=== PATIENT | female | born 1940 | race African-American/Black ===

== ENCOUNTER → 2016-10-03 | Outpatient (CLI) | payer OTHER ==
[~2016-10-03] MED LIST: ASPI81CH45 OR; BENA40TA2 PO; HYDR25TA4 PO; NIFE60TA75 PO; OMEP20CA5 PO; PRAV20TA3 PO
[2016-10-03 09:47] LABS: Albumin 3.8 g/dL (3.4-5.0); BUN/Creatinine Ratio 18.4; Bilirubin, Total 0.6 mg/dL (0.2-1.0); Calcium 9.5 mg/dL (8.5-10.1); Potassium 3.4 mmol/L (3.5-5.1); Total Protein 8.2 g/dL (6.4-8.2)
[2016-10-03 09:49] LABS: Basophils # (auto) 0 uL; Basophils % (auto) 0.5 % (0.0-2.0); DEFINITIVE VIEW TRANSMISSION; Eosinophils # (auto) 0.1 uL; Eosinophils % (auto) 0.8 % (0.0-7.0); Hematocrit 39.4 % (36.0-46.0); Hemoglobin 12.7 g/dL (12.2-16.2); Lymphocytes % (auto) 22.3 % (10.0-50.0); Mean Corpuscular Hemoglobin 26.2 pg (28.0-32.0); Mean Corpuscular Hgb Conc. 32.2 g/dL (32.0-36.0); Mean Corpuscular Volume 81.3 fL (80.0-100.0); Mean Platelet Volume 9.7 fL (7.4-10.4); Monocytes # (auto) 0.7 uL; Monocytes % (auto) 7.7 % (0.0-12.0); Neutrophils % (auto) 68.7 % (37.0-80.0); Platelet Count (auto) 303 10^3/uL (140-450); Red Cell Distribution Width 16.3 % (11.6-16.0); White Blood Cell 8.7 10^3/uL (4.4-10.8)
[2016-10-03 09:52] LABS: Urine Bilirubin Negative (Negative); Urine Blood Negative /uL (Negative); Urine Color Yellow (Yellow); Urine Glucose Normal (Normal); Urine Ketone Negative (Negative); Urine Mucus FEW (None Seen); Urine Nitrite Negative (Negative); Urine RBC 1 /hpf (0 - 4); Urine Squamous Epithelial Cell FEW /hpf (<5); Urine Urobilinogen Normal (Negative); Urine pH 7.5 (5.0-8.0)
== END | disposition home or self-care (01) ==
LOC: LAB 08:58
PROVIDERS: ATTEND Internal Medicine
DX: Z00.00 Encounter for general adult medical examination without abnormal findings (principal); I10 Essential (primary) hypertension; E78.2 Mixed hyperlipidemia; E55.9 Vitamin D deficiency, unspecified
CPT/HCPCS: 36415; 80053; 80061; 81001; 82306; 84443; 85025

== ENCOUNTER → 2016-10-16 | Outpatient (CLI) | payer OTHER | END | disposition home or self-care (01) | LOC: XYW 10:07 | PROVIDERS: ATTEND Internal Medicine | DX: I05.0 Rheumatic mitral stenosis (principal); I35.0 Nonrheumatic aortic (valve) stenosis; I07.1 Rheumatic tricuspid insufficiency | CPT/HCPCS: 93306 ==

== ENCOUNTER 2017-03-16 12:05 | Inpatient (IN) | payer OTHER, MEDICAID ==
[~2017-03-16] VITALS: Ht 154.9 cm; Wt 59.2 kg
[~2017-03-16 12:05] MED LIST changes: -BENA40TA2 PO; +BENA40TA7 PO; -OMEP20CA5 PO; +OMEP20CA74 PO
[2017-03-16 13:13] LABS: Urine Bilirubin Negative (Negative); Urine Blood Negative /uL (Negative); Urine Color Yellow (Yellow); Urine Glucose Normal (Normal); Urine Ketone Negative (Negative); Urine Mucus FEW (None Seen); Urine Nitrite Negative (Negative); Urine RBC 1 /hpf (0 - 4); Urine Squamous Epithelial Cell FEW /hpf (<5); Urine Urobilinogen Normal (Negative); Urine pH 6.5 (5.0-8.0)
[2017-03-16 13:23] LABS: Basophils # (auto) 0 uL; Basophils % (auto) 0.2 % (0.0-2.0); CONDITION Y; DEFINITIVE SEE PRINTOUT; Eosinophils # (auto) 0 uL; Eosinophils % (auto) 0.3 % (0.0-7.0); Hematocrit 41.4 % (36.0-46.0); Hemoglobin 13.5 g/dL (12.2-16.2); Lymphocytes # (auto) 2.2 uL; Lymphocytes % (auto) 21.3 % (10.0-50.0); Mean Corpuscular Hemoglobin 26.4 pg (28.0-32.0); Mean Corpuscular Hgb Conc. 32.7 g/dL (32.0-36.0); Mean Corpuscular Volume 80.7 fL (80.0-100.0); Monocytes # (auto) 0.7 uL; Monocytes % (auto) 7.1 % (0.0-12.0); Neutrophils # (auto) 7.3 uL; Neutrophils % (auto) 71.1 % (37.0-80.0); Platelet Count (auto) 317 10^3/uL (140-450); Red Cell Distribution Width 16.9 % (11.6-16.0); White Blood Cell 10.3 10^3/uL (4.4-10.8)
[2017-03-16 13:47] LABS: Albumin 3.7 g/dL (3.4-5.0); Alkaline Phosphatase 89 U/L (45-117); Anion Gap 10 (5-15); Aspartate Aminotransferase 15 U/L (15-37); BUN/Creatinine Ratio 11.1; Bilirubin, Total 0.4 mg/dL (0.2-1.0); Blood Urea Nitrogen 10 mg/dL (7-18); Calcium 9.2 mg/dL (8.5-10.1); Carbon Dioxide 29 mmol/L (21-32); Chloride 103 mmol/L (98-107); GFR African American 79 mL/min; GFR Non-African American 65 mL/min; Glucose 89 mg/dL (74-106); Magnesium 2.7 mg/dL (1.6-2.6); Sodium 142 mmol/L (136-145); Total Protein 8.3 g/dL (6.4-8.2)
[2017-03-16] MEDS ORDERED: cefTRIAXone 1GM/50ML D5W 50 ML IV ONE (15:45)
[2017-03-16] MEDS ORDERED: CYCLOBENZAPRINE HCL 10 MG TAB PO ONE (15:45)
[2017-03-16] MEDS ORDERED: ASPirin-EC 81 mg tab PO ONE (15:45)
[2017-03-16] MEDS ORDERED: POTASSIUM CHL 20 Meq TABLET PO ONE (15:45)
[2017-03-16] MEDS ORDERED: TEMAZEPAM 15 MG CAP PO PRN (16:45)
[2017-03-16] MEDS ORDERED: ACETAMINOPHEN 325 MG TAB PO PRN (16:45)
[2017-03-16] MEDS ORDERED: ONDANSETRON HCL 4 MG/2 ML VIAL IV PRN (16:45)
[2017-03-16] MEDS ORDERED: DOCUSATE SOD 100 MG CAP PO PRN (16:45)
[2017-03-16] MEDS ORDERED: NITROGLYCERIN 0.4 MG SL TAB SL PRN (16:45)
[2017-03-16 17:47] VITALS: BP 173/77
[2017-03-16] MEDS ORDERED: cloNIDine HCL 0.1 MG TAB PO PRN (18:45)
[2017-03-16] MEDS: FAMOTIDINE 20 MG TAB PO SCH (21:26)
[2017-03-16] MEDS: SODIUM CHLOR 0.9% PF (SALINE LOCK) 10ML VIAL IV SCH (21:27)
[2017-03-16] MEDS: PRAVASTATIN SODIUM 20 MG TAB PO SCH (21:27)
[2017-03-16 22:00] VITALS: BP 141/62
[2017-03-17 05:00] VITALS: BP 127/61
[2017-03-17 06:29] LABS: Basophils # (auto) 0 uL; Basophils % (auto) 0.4 % (0.0-2.0); CONDITION Y; DEFINITIVE SEE PRINTOUT; Eosinophils # (auto) 0.1 uL; Eosinophils % (auto) 1.1 % (0.0-7.0); Hematocrit 36.2 % (36.0-46.0); Lymphocytes # (auto) 1.9 uL; Lymphocytes % (auto) 25.5 % (10.0-50.0); Mean Corpuscular Hemoglobin 26.6 pg (28.0-32.0); Mean Corpuscular Hgb Conc. 33.1 g/dL (32.0-36.0); Mean Corpuscular Volume 80.3 fL (80.0-100.0); Mean Platelet Volume 10.1 fL (7.4-10.4); Monocytes # (auto) 0.7 uL; Monocytes % (auto) 8.7 % (0.0-12.0); Neutrophils # (auto) 4.9 uL; Neutrophils % (auto) 64.3 % (37.0-80.0); Platelet Count (auto) 262 10^3/uL (140-450); Red Cell Distribution Width 17.1 % (11.6-16.0); White Blood Cell 7.6 10^3/uL (4.4-10.8)
[2017-03-17 06:36] LABS: BUN/Creatinine Ratio 14.6; Calcium 8.4 mg/dL (8.5-10.1); Potassium 3.8 mmol/L (3.5-5.1)
[2017-03-17 06:39] LABS: Bilirubin, Total 0.4 mg/dL (0.2-1.0); Total Protein 7.1 g/dL (6.4-8.2)
[2017-03-17] MEDS: SODIUM CHLOR 0.9% PF (SALINE LOCK) 10ML VIAL IV SCH ×3 (06:52→21:23)
[2017-03-17] MEDS: HYDROmorphone HCL 2 MG/ML VL IV PRN ×2 (07:39→14:09)
[2017-03-17 09:00] VITALS: BP 127/73
[2017-03-17] MEDS: cefTRIAXone 1GM/50ML D5W 50 ML IV SCH (09:00)
[2017-03-17] MEDS: MULTIPLE VITAMIN TAB PO SCH (09:45)
[2017-03-17] MEDS: ENOXAPARIN SOD 40 MG/0.4 ML SYRINGE SC SCH (09:45)
[2017-03-17] MEDS: PANTOPRAZOLE 40 MG TAB PO SCH (09:46)
[2017-03-17] MEDS: ASPirin-EC 81 mg tab PO SCH (09:46)
[2017-03-17] MEDS: FAMOTIDINE 20 MG TAB PO SCH ×2 (09:46→21:23)
[2017-03-17] MEDS: BENAZEPRIL HCL 10 MG TAB PO SCH (09:47)
[2017-03-17] MEDS: NIFEdipine ER 30 MG TAB PO SCH (09:48)
[2017-03-17] MEDS: HCTZ 25 MG TAB PO SCH (09:48)
[2017-03-17] MEDS: HYDROcodone-ACET 5/325MG TAB PO PRN ×2 (10:17→16:19)
[2017-03-17 13:00] VITALS: BP 127/65
[2017-03-17 17:00] VITALS: BP 177/72
[2017-03-17] MEDS: PRAVASTATIN SODIUM 20 MG TAB PO SCH (21:23)
[2017-03-17 21:30] VITALS: BP 128/60
[2017-03-18 05:00] VITALS: BP 106/55
[2017-03-18] MEDS: SODIUM CHLOR 0.9% PF (SALINE LOCK) 10ML VIAL IV SCH ×2 (06:07→14:00)
[2017-03-18 08:00] VITALS: BP 123/65
[2017-03-18] MEDS: ASPirin-EC 81 mg tab PO SCH (09:05)
[2017-03-18] MEDS: FAMOTIDINE 20 MG TAB PO SCH (09:06)
[2017-03-18] MEDS: BENAZEPRIL HCL 10 MG TAB PO SCH (09:06)
[2017-03-18] MEDS: PANTOPRAZOLE 40 MG TAB PO SCH (09:07)
[2017-03-18] MEDS: HCTZ 25 MG TAB PO SCH (09:07)
[2017-03-18] MEDS: NIFEdipine ER 30 MG TAB PO SCH (09:07)
[2017-03-18] MEDS: MULTIPLE VITAMIN TAB PO SCH (09:07)
[2017-03-18] MEDS: ENOXAPARIN SOD 40 MG/0.4 ML SYRINGE SC SCH (09:08)
[2017-03-18] MEDS: cefTRIAXone 1GM/50ML D5W 50 ML IV SCH (09:08)
[2017-03-18] MEDS: HYDROmorphone HCL 2 MG/ML VL IV PRN (09:09)
[2017-03-18 12:00] VITALS: BP 147/64
[2017-03-18 15:00] LABS: Cholesterol 200 mg/dL (< 200); HDL Cholesterol 55 mg/dL (40-59); LDL Cholesterol 118 mg/dL (< 100); Triglycerides 106 mg/dL (< 150)
[2017-03-18 15:46] VITALS: BP 147/60
[2017-03-18 17:00] VITALS: BP 127/59
== END 2017-03-18 17:50 | disposition home or self-care (01) | DRG 74 ==
LOC: ER 12:05 → TELE 12:06 → TELE-E-ADS 17:24 → TELE-WESTW 18:52
PROVIDERS: ADMIT Internal Medicine; ATTEND Internal Medicine
DX: M54.12 Radiculopathy, cervical region (principal); G45.9 Transient cerebral ischemic attack, unspecified; I10 Essential (primary) hypertension; N30.00 Acute cystitis without hematuria; E87.6 Hypokalemia; E78.5 Hyperlipidemia, unspecified; F41.9 Anxiety disorder, unspecified; I25.10 Atherosclerotic heart disease of native coronary artery without angina pectoris; K21.9 Gastro-esophageal reflux disease without esophagitis; G89.29 Other chronic pain; M19.90 Unspecified osteoarthritis, unspecified site; R29.700 NIHSS score 0; Z79.82 Long term (current) use of aspirin; Z82.49 Family history of ischemic heart disease and other diseases of the circulatory system; Z86.73 Personal history of transient ischemic attack (TIA), and cerebral infarction without residual deficits; Z90.49 Acquired absence of other specified parts of digestive tract; Z90.710 Acquired absence of both cervix and uterus; Z90.89 Acquired absence of other organs; Z88.5 Allergy status to narcotic agent; Z88.0 Allergy status to penicillin; Z88.2 Allergy status to sulfonamides
CPT/HCPCS: 36415; 70450; 70551; 71010; 72141; 80053; 80061; 81001; 83036; 83735; 84484; 85025; 87086; 92610; 93005; 93886; 96374; J0696; J2405

== ENCOUNTER 2017-12-13 09:49 | Day surgery (SDC) | payer OTHER, MEDICAID ==
[2017-12-10 13:16] LABS: Basophils # (auto) 0 uL; Basophils % (auto) 0.4 % (0.0-2.0); Eosinophils # (auto) 0.1 uL; Eosinophils % (auto) 0.8 % (0.0-7.0); Hematocrit 39.6 % (36.0-46.0); Hemoglobin 13.2 g/dL (12.2-16.2); Lymphocytes # (auto) 1.4 uL; Lymphocytes % (auto) 17.4 % (10.0-50.0); Mean Corpuscular Hgb Conc. 33.4 g/dL (32.0-36.0); Mean Corpuscular Volume 80.8 fL (80.0-100.0); Monocytes # (auto) 0.7 uL; Neutrophils # (auto) 5.8 uL; Neutrophils % (auto) 72.4 % (37.0-80.0); Nucleated Red Blood Cells % 0.2 %; Platelet Count (auto) 243 10^3/uL (140-450); Red Cell Distribution Width 17.3 % (11.8-14.3); White Blood Cell 8.1 10^3/uL (4.4-10.8)
[2017-12-10 13:35] LABS: INR 0.91 (0.9-1.15); Partial Thromboplastin Time 28.5 sec (22.64-33.71); Prothrombin Time 9.9 sec (9.37-12.3)
[~2017-12-13] VITALS: Ht 154.9 cm; Wt 56.2 kg
[~2017-12-13 09:49] MED LIST changes: -ASPI81CH45 OR; +ASPI81CH45 PO; +LIDOCAINE VISCOUS 2% 15ML UD ONE; +NIFE-31 PO; -NIFE60TA75 PO; +SODIUM CHLORIDE LOCK 10 ML ONE; +diphenhdrAMINE HCL 50 MG/1 ML VL ONE
[2017-12-13] MEDS: fentaNYL CITRATE 100 MCG/2 ML VL ONE ×2 (10:55→10:59)
[2017-12-13] MEDS: MIDAZOLAM HCL 5 MG/ML-1ML VIAL ONE ×2 (10:55→10:59)
[2017-12-13 12:06] VITALS: BP 151/71
[2017-12-13] MEDS ORDERED: ONDANSETRON HCL 4 MG/2 ML VIAL IV ONE (12:15)
[2017-12-13] MEDS ORDERED: ONDANSETRON HCL 4 MG/2 ML VIAL ONE (12:16)
== END 2017-12-13 12:32 | disposition home or self-care (01) ==
LOC: SUR 09:49
PROVIDERS: ATTEND Internal Medicine Gastroenterology
DX: K29.50 Unspecified chronic gastritis without bleeding (principal); K31.7 Polyp of stomach and duodenum; K22.70 Barrett's esophagus without dysplasia; K44.9 Diaphragmatic hernia without obstruction or gangrene; I20.9 Angina pectoris, unspecified; J44.9 Chronic obstructive pulmonary disease, unspecified; F41.9 Anxiety disorder, unspecified; G47.30 Sleep apnea, unspecified; D64.9 Anemia, unspecified; I13.0 Hypertensive heart and chronic kidney disease with heart failure and stage 1 through stage 4 chronic kidney disease, or unspecified chronic kidney disease; E11.22 Type 2 diabetes mellitus with diabetic chronic kidney disease; N18.2 Chronic kidney disease, stage 2 (mild); I50.9 Heart failure, unspecified; E78.5 Hyperlipidemia, unspecified; Z90.49 Acquired absence of other specified parts of digestive tract; Z79.899 Other long term (current) drug therapy; Z86.73 Personal history of transient ischemic attack (TIA), and cerebral infarction without residual deficits; Z88.0 Allergy status to penicillin; Z88.2 Allergy status to sulfonamides; Z88.8 Allergy status to other drugs, medicaments and biological substances; Z88.5 Allergy status to narcotic agent; Z90.710 Acquired absence of both cervix and uterus; Z90.721 Acquired absence of ovaries, unilateral
CPT/HCPCS: 36415; 43239; 85025; 85610; 85730; 88305; 88313; 88342; J1200; J2250; J2405; J3010; J7030

== ENCOUNTER 2018-08-11 15:23 | Inpatient (IN) | payer OTHER, MEDICAID ==
[~2018-08-11] VITALS: Ht 154.9 cm; Wt 61.3 kg
[~2018-08-11 15:23] MED LIST changes: -LIDOCAINE VISCOUS 2% 15ML UD ONE; -SODIUM CHLORIDE LOCK 10 ML ONE; -diphenhdrAMINE HCL 50 MG/1 ML VL ONE
[2018-08-11] MEDS ORDERED: SODIUM CHLORIDE 0.9% 1,000 ML IV ONE (16:19)
[2018-08-11] MEDS ORDERED: PANTOPRAZOLE 40 MG/10 ML VIAL IV ONE (16:30)
[2018-08-11 16:46] LABS: Basophils # (auto) 0 uL; Basophils % (auto) 0.1 % (0.0-2.0); Eosinophils # (auto) 0 uL; Mean Corpuscular Volume 80.5 fL (80.0-100.0)
[2018-08-11 16:48] LABS: Hemoglobin 13.6 g/dL (12.2-16.2); Lymphocytes # (auto) 0.6 uL; Lymphocytes % (auto) 4.1 % (10.0-50.0); Mean Corpuscular Hemoglobin 26.1 pg (28.0-32.0); Mean Corpuscular Hgb Conc. 32.4 g/dL (32.0-36.0); Monocytes # (auto) 0.6 uL; Monocytes % (auto) 3.9 % (0.0-12.0); Neutrophils # (auto) 14.5 uL; Neutrophils % (auto) 91.9 % (37.0-80.0); Platelet Count (auto) 257 10^3/uL (140-450); Red Blood Cells 5.22 10^6/uL (4.0-5.20); White Blood Cell 15.8 10^3/uL (4.4-10.8)
[2018-08-11 17:01] LABS: Albumin 3.5 g/dL (3.4-5.0); Anion Gap 4 (5-15); Blood Urea Nitrogen 17 mg/dL (7-18); Calcium 8.8 mg/dL (8.5-10.1); Carbon Dioxide 31 mmol/L (21-32); Chloride 106 mmol/L (98-107); Glucose 122 mg/dL (74-106); Potassium 3.5 mmol/L (3.5-5.1); Sodium 141 mmol/L (136-145)
[2018-08-11 17:08] LABS: Alanine Aminotransferase 18 U/L (13-56); Alkaline Phosphatase 104 U/L (45-117); Aspartate Aminotransferase 17 U/L (15-37); BUN/Creatinine Ratio 15.7; Bilirubin, Total 0.5 mg/dL (0.2-1.0); GFR Non-African American 53 mL/min; Total Protein 7.8 g/dL (6.4-8.2)
[2018-08-11 17:14] LABS: INR 0.95 (0.9-1.15); Partial Thromboplastin Time 27.3 sec (23.78-33.04); Prothrombin Time 10.2 sec (9.27-12.13)
[2018-08-11 17:20] LABS: GFR African American > 60 mL/min
[2018-08-11] MEDS ORDERED: PROMETHAZINE HCL 25 MG/ML 1ML IV ONE (17:30)
[2018-08-11] MEDS ORDERED: VANCOMYCIN 1GM/250ML 250 ML IV ONE (18:15)
[2018-08-11] MEDS ORDERED: traMADol HCL 50 MG TAB PO PRN (19:00)
[2018-08-11] MEDS ORDERED: MORPHINE SULFATE 10 MG/ML INJ 1ML SDV IV PRN (19:00)
[2018-08-11] MEDS ORDERED: NITROGLYCERIN 0.4 MG SL TAB SL PRN (19:00)
[2018-08-11] MEDS ORDERED: VANCOMYCIN PER PHARMACY 0 MG IV SCH (19:00)
[2018-08-11] MEDS: SODIUM CHLORIDE 0.9% 1,000 ML IV SCH (19:04)
[2018-08-11 21:41] VITALS: BP 133/69
[2018-08-11 21:45] VITALS: BP 133/69
--- NOTE | 2018-08-11 21:45 | NUR ---
Telemetry admit from ER GENILUDWIN admitted to Telemetry unit after SBAR received. Patient oriented to Gagan garcia RN, unit, room, bed, and unit policies regarding patient care and visiting hours. Patient now on continuous telemetry monitoring, tele box # 4 and telemetry reading on arrival to unit is NSR. Patient placed on bedside oxygen, weighed by bedscale and encouraged to call if they need something. All questions and concerns addressed, patient verbalized understanding.
[2018-08-11] MEDS: KETOROLAC TROMETH 30 MG/ML 1ML VIAL IV PRN (22:58)
[2018-08-11] MEDS: ATORVASTATIN 20 MG TAB PO SCH (22:58)
[2018-08-12] MEDS: metroNIDAZOLE 500MG/100ML 100 ML IV SCH ×4 (04:02→18:16)
[2018-08-12 05:42] VITALS: BP 124/61
[2018-08-12 06:01] LABS: Basophils # (auto) 0 uL; Basophils % (auto) 0.1 % (0.0-2.0); Eosinophils # (auto) 0 uL; Hemoglobin 12.2 g/dL (12.2-16.2); Lymphocytes # (auto) 1.8 uL; Mean Corpuscular Hgb Conc. 32.5 g/dL (32.0-36.0); Monocytes # (auto) 1.3 uL; Red Cell Distribution Width 15.8 % (11.8-14.3)
[2018-08-12 06:04] LABS: Eosinophils % (auto) 0.1 % (0.0-7.0); Hematocrit 37.6 % (36.0-46.0); Lymphocytes % (auto) 13.1 % (10.0-50.0); Mean Corpuscular Hemoglobin 26.3 pg (28.0-32.0); Mean Corpuscular Volume 80.9 fL (80.0-100.0); Monocytes % (auto) 9.1 % (0.0-12.0); Neutrophils # (auto) 10.6 uL; Neutrophils % (auto) 77.6 % (37.0-80.0); Platelet Count (auto) 217 10^3/uL (140-450); Red Blood Cells 4.64 10^6/uL (4.0-5.20); White Blood Cell 13.7 10^3/uL (4.4-10.8)
[2018-08-12 06:17] LABS: Calcium 8.2 mg/dL (8.5-10.1); Magnesium 2.4 mg/dL (1.6-2.6); Potassium 3.5 mmol/L (3.5-5.1)
[2018-08-12 06:24] LABS: BUN/Creatinine Ratio 16.3
[2018-08-12] MEDS: SODIUM CHLORIDE 0.9% 1,000 ML IV SCH ×2 (06:30→15:00)
[2018-08-12] MEDS: KETOROLAC TROMETH 30 MG/ML 1ML VIAL IV PRN ×2 (08:20→16:51)
[2018-08-12 08:30] VITALS: BP_SYST 120; BP_SYST 131; BP_DIAS 60; BP_DIAS 76
[2018-08-12] MEDS: PANTOPRAZOLE 40 MG/10 ML VIAL IV SCH (10:44)
[2018-08-12] MEDS: NIFEdipine ER 30 MG TAB PO SCH (10:45)
[2018-08-12] MEDS: cefTRIAXone 1GM/50ML D5W 50 ML IV SCH (10:46)
--- NOTE | 2018-08-12 12:38 | NUR ---
GI at bedside MD Baum at bedside, awaiting new orders.
--- NOTE | 2018-08-12 12:39 | NUR ---
Hospitalist at bedside MD Duarte at bedside. Aware of patients status including rectal bleed. Awaiting new orders
[2018-08-12 13:00] VITALS: BP 123/69
[2018-08-12 13:27] LABS: Hematocrit 35.2 % (36.0-46.0); Hemoglobin 11.4 g/dL (12.2-16.2)
[2018-08-12 17:00] VITALS: BP 143/76
[2018-08-12] MEDS ORDERED: VANCOMYCIN 1GM/250ML 250 ML IV SCH (18:00)
--- NOTE | 2018-08-12 19:05 | NUR ---
Patient care endorsed endorsed care to Shante nguyen. Patient laying down in bed in no acute distress or sob.
--- NOTE | 2018-08-12 19:10 | NUR ---
OPEN SHIFT NOTE PATIENT ALERT AND ORIENTED X4, ON ROOM AIR. NO COMPLAINTS OF PAIN. POC DISCUSSED AND QUESTIONS ANSWERED. BED IS LOCKED IN LOWEST POSITION WITH SIDE RAILS UP X2. CALL LIGHT IS WITHIN REACH. WILL CONTINUE TO ROUND Q1HR AND PRN.
[2018-08-12 22:00] VITALS: BP 116/65
[2018-08-12] MEDS: ATORVASTATIN 20 MG TAB PO SCH (22:13)
[2018-08-13] MEDS: metroNIDAZOLE 500MG/100ML 100 ML IV SCH ×4 (00:13→18:45)
[2018-08-13] MEDS: SODIUM CHLORIDE 0.9% 1,000 ML IV SCH ×3 (00:14→13:45)
[2018-08-13 05:10] VITALS: BP 107/55
--- NOTE | 2018-08-13 08:00 | NUR ---
Opening Shift Note Assumed care of patient, awake and alert. No S/S of distress/SOB or pain. Instructed on POC and to call for assist PRN, will continue to monitor for changes Q1hr and PRN.
[2018-08-13 08:21] VITALS: BP 115/62
[2018-08-13] MEDS: cefTRIAXone 1GM/50ML D5W 50 ML IV SCH (09:20)
[2018-08-13] MEDS: PANTOPRAZOLE 40 MG/10 ML VIAL IV SCH (09:20)
[2018-08-13] MEDS: NIFEdipine ER 30 MG TAB PO SCH (09:21)
--- NOTE | 2018-08-13 11:10 | NUR ---
DR. ZUNIGA AT BEDSIDE.
[2018-08-13 11:13] LABS: Lymphocytes # (auto) 1.8 uL; White Blood Cell 12.6 10^3/uL (4.4-10.8)
[2018-08-13 11:15] LABS: Basophils # (auto) 0.1 uL; Basophils % (auto) 0.4 % (0.0-2.0); Eosinophils # (auto) 0 uL; Eosinophils % (auto) 0.4 % (0.0-7.0); Hemoglobin 10.9 g/dL (12.2-16.2); Lymphocytes % (auto) 13.9 % (10.0-50.0); Mean Corpuscular Hemoglobin 25.7 pg (28.0-32.0); Mean Corpuscular Hgb Conc. 32.1 g/dL (32.0-36.0); Monocytes % (auto) 7.7 % (0.0-12.0); Neutrophils # (auto) 9.8 uL; Neutrophils % (auto) 77.6 % (37.0-80.0); Nucleated Red Blood Cells % 0.1 %; Platelet Count (auto) 192 10^3/uL (140-450); Red Blood Cells 4.26 10^6/uL (4.0-5.20)
[2018-08-13] MEDS: ONDANSETRON HCL 4 MG/2 ML VIAL IV PRN ×2 (11:27→21:27)
[2018-08-13] MEDS: KETOROLAC TROMETH 30 MG/ML 1ML VIAL IV PRN ×2 (11:27→22:02)
[2018-08-13 11:29] LABS: Anion Gap 5 (5-15); BUN/Creatinine Ratio 17.6; Blood Urea Nitrogen 15 mg/dL (7-18); Calcium 7.7 mg/dL (8.5-10.1); Carbon Dioxide 26 mmol/L (21-32); Chloride 113 mmol/L (98-107); GFR African American > 60 mL/min; GFR Non-African American > 60 mL/min; Glucose 98 mg/dL (74-106); Sodium 144 mmol/L (136-145)
[2018-08-13 12:25] VITALS: BP 123/68
[2018-08-13] MEDS ORDERED: POTASSIUM CHL 20 Meq TABLET PO ONE (12:30)
[2018-08-13 12:54] LABS: Urine Bacteria FEW /hpf (None Seen); Urine Blood 2+ /uL (Negative); Urine Mucus FEW (None Seen); Urine Specific Gravity 1.018 (1.001-1.035); Urine WBC 13 /hpf (0 - 5)
[2018-08-13 16:43] VITALS: BP 124/65
--- NOTE | 2018-08-13 19:16 | NUR ---
CLOSING NOTE PATIENT RESTING IN BED, NO SIGNS OF DISTRESS NOTED.
--- NOTE | 2018-08-13 19:20 | NUR ---
OPEN SHIFT NOTE PATIENT IS ALERT AND ORIENTED X4. ROOM AIR. 18 GAUGE IN THE RIGHT AC IS INTACT WITH NORMAL SALINE RUNNING AT 70MLS/HR. PATIENT DOES NOT STATE ANY PAIN AT THIS TIME. POC DISCUSSED AND QUESTIONS ANSWERED. BED IS LOCKED IN LOWEST POSITION WITH SIDE RAILS UP X2 FOR SAFETY AND CALL LIGHT IS WITHIN REACH. WILL CONTINUE TO ROUND Q1HR AND PRN.
[2018-08-13] MEDS: ATORVASTATIN 20 MG TAB PO SCH (21:55)
[2018-08-13 22:00] VITALS: BP 146/66
[2018-08-14] MEDS: metroNIDAZOLE 500MG/100ML 100 ML IV SCH ×4 (00:07→17:34)
[2018-08-14 05:00] VITALS: BP 131/65
[2018-08-14] MEDS: SODIUM CHLORIDE 0.9% 1,000 ML IV SCH ×2 (06:02→13:55)
[2018-08-14 06:13] LABS: Basophils # (auto) 0 uL; Basophils % (auto) 0.3 % (0.0-2.0); Eosinophils # (auto) 0.1 uL; Eosinophils % (auto) 0.6 % (0.0-7.0); Hematocrit 35.1 % (36.0-46.0); Hemoglobin 11.5 g/dL (12.2-16.2); Lymphocytes # (auto) 1.7 uL; Lymphocytes % (auto) 16.6 % (10.0-50.0); Mean Corpuscular Hemoglobin 26.5 pg (28.0-32.0); Mean Corpuscular Hgb Conc. 32.6 g/dL (32.0-36.0); Mean Corpuscular Volume 81.1 fL (80.0-100.0); Monocytes # (auto) 0.7 uL; Monocytes % (auto) 7.2 % (0.0-12.0); Neutrophils # (auto) 7.7 uL; Neutrophils % (auto) 75.3 % (37.0-80.0); Platelet Count (auto) 189 10^3/uL (140-450); Red Blood Cells 4.33 10^6/uL (4.0-5.20); Red Cell Distribution Width 16.1 % (11.8-14.3); White Blood Cell 10.3 10^3/uL (4.4-10.8)
[2018-08-14 06:40] LABS: Chloride 109 mmol/L (98-107); Potassium 3.2 mmol/L (3.5-5.1); Sodium 141 mmol/L (136-145)
[2018-08-14 06:45] LABS: Anion Gap 8 (5-15); BUN/Creatinine Ratio 14.5; Blood Urea Nitrogen 12 mg/dL (7-18); Calcium 7.9 mg/dL (8.5-10.1); Carbon Dioxide 24 mmol/L (21-32); GFR African American > 60 mL/min; GFR Non-African American > 60 mL/min; Glucose 74 mg/dL (74-106)
--- NOTE | 2018-08-14 06:57 | NUR ---
END OF SHIFT PATIENT ASLEEP, NO SIGN OF DISTRESS. WILL ENDORSE CARE TO DAY TIME NURSE.
--- NOTE | 2018-08-14 08:30 | NUR ---
Opening Shift Note Assumed care of patient, awake and alert, oriented x 4 and verbally responsive. Respiratory even and unlabored. Skin is warm and dry to touch. No S/S of distress/SOB or pain. Instructed on POC and to call for assist PRN, will continue to monitor for changes Q1hr and PRN.
--- NOTE | 2018-08-14 08:43 | NUR ---
PT REPORTS THAT SHE IS DOING FINE AND DOES NOT NEED P.T.
--- NOTE | 2018-08-14 08:45 | NUR ---
IV insertion IV access obtained, via clean sterile technique by inserting 22 gauge catheter at after attempt(s). IV secured properly. No trauma to site. Patient tolerated procedure well.
[2018-08-14 09:00] VITALS: BP 143/73
[2018-08-14] MEDS: PANTOPRAZOLE 40 MG/10 ML VIAL IV SCH (09:14)
[2018-08-14] MEDS: cefTRIAXone 1GM/50ML D5W 50 ML IV SCH (09:14)
[2018-08-14] MEDS: ONDANSETRON HCL 4 MG/2 ML VIAL IV PRN ×3 (09:14→21:33)
[2018-08-14] MEDS: NIFEdipine ER 30 MG TAB PO SCH (09:15)
[2018-08-14] MEDS ORDERED: POTASSIUM CHL 20 Meq TABLET PO ONE (11:30)
[2018-08-14 13:00] VITALS: BP 129/66
[2018-08-14 17:07] VITALS: BP 140/71
[2018-08-14] MEDS: ATORVASTATIN 20 MG TAB PO SCH (21:32)
[2018-08-14 22:00] VITALS: BP 121/56
[2018-08-15] MEDS: metroNIDAZOLE 500MG/100ML 100 ML IV SCH ×3 (00:12→11:52)
[2018-08-15 05:00] VITALS: BP 111/53
[2018-08-15 06:25] LABS: Basophils # (auto) 0 uL; Basophils % (auto) 0.3 % (0.0-2.0); Eosinophils # (auto) 0 uL; Eosinophils % (auto) 0.3 % (0.0-7.0); Hematocrit 33.8 % (36.0-46.0); Hemoglobin 11.2 g/dL (12.2-16.2); Lymphocytes % (auto) 10.7 % (10.0-50.0); Mean Corpuscular Hemoglobin 26.7 pg (28.0-32.0); Mean Corpuscular Hgb Conc. 33.2 g/dL (32.0-36.0); Mean Corpuscular Volume 80.4 fL (80.0-100.0); Monocytes # (auto) 0.8 uL; Monocytes % (auto) 8.4 % (0.0-12.0); Neutrophils # (auto) 7.9 uL; Neutrophils % (auto) 80.3 % (37.0-80.0); Platelet Count (auto) 179 10^3/uL (140-450); Red Cell Distribution Width 16.3 % (11.8-14.3); White Blood Cell 9.8 10^3/uL (4.4-10.8)
[2018-08-15] MEDS: SODIUM CHLORIDE 0.9% 1,000 ML IV SCH (06:51)
--- NOTE | 2018-08-15 07:30 | NUR ---
Opening Note Patient resting in bed with eyes closed. No distress noted. Bed in low pos., locked, rails up x2, call light in reach. No distress.
[2018-08-15 09:00] VITALS: BP 108/51
[2018-08-15] MEDS: NIFEdipine ER 30 MG TAB PO SCH (10:00)
[2018-08-15] MEDS: cefTRIAXone 1GM/50ML D5W 50 ML IV SCH (10:15)
[2018-08-15] MEDS: PANTOPRAZOLE 40 MG/10 ML VIAL IV SCH (10:15)
[2018-08-15] MEDS ORDERED: POTASSIUM CHL 20 Meq TABLET PO ONE (11:15)
--- NOTE | 2018-08-15 11:59 | NUR ---
Telemetry Telemetry removed
[2018-08-15] MEDS ORDERED: METR500T PO (12:48)
[2018-08-15] MEDS ORDERED: LEVO500T21 PO (12:48)
[2018-08-15 13:00] VITALS: BP 125/59
[2018-08-15 14:32] VITALS: BP 125/59
[2018-08-15] MEDS: ONDANSETRON HCL 4 MG/2 ML VIAL IV PRN (16:07)
[2018-08-15 17:04] VITALS: BP 140/66
--- NOTE | 2018-08-15 18:43 | NUR ---
Snack and Dinner Patient had part of a banana and some of her dinner (25%), and was able to tolerate it well. Discharge Discharge instructions given to patient and her family. Gave prescriptions for lovenox and flagyl po. Patient is aware that she needs to call office of Dr. Baum and Office of her primary doctor for follow-up appt. Removed IV, site benign. Three family members here to take patient home. Patient has all belongings and discharge instructions.
--- NOTE | 2018-08-15 19:05 | NUR ---
PT LEFT VIA W/C ACCOMPANIED BY FAMILY AND CUSTOMER CONSULTANT. HAS ALL BELONGINGS. NO DISTRESS NOTED.
== END 2018-08-15 18:35 | disposition home or self-care (01) | DRG 871 ==
LOC: EDBD 15:23 → ER 15:32 → TELE 19:20 → TELE-WESTW 21:32
PROVIDERS: ADMIT Nurse Practitioner Acute Care; ATTEND Internal Medicine
DX: A41.9 Sepsis, unspecified organism (principal); N17.0 Acute kidney failure with tubular necrosis; K55.9 Vascular disorder of intestine, unspecified; E78.00 Pure hypercholesterolemia, unspecified; E78.5 Hyperlipidemia, unspecified; E87.6 Hypokalemia; I10 Essential (primary) hypertension; I70.8 Atherosclerosis of other arteries; M54.9 Dorsalgia, unspecified; N28.1 Cyst of kidney, acquired; G89.29 Other chronic pain; D64.9 Anemia, unspecified; K21.9 Gastro-esophageal reflux disease without esophagitis; I70.0 Atherosclerosis of aorta; K57.30 Diverticulosis of large intestine without perforation or abscess without bleeding; Z82.49 Family history of ischemic heart disease and other diseases of the circulatory system; Z86.73 Personal history of transient ischemic attack (TIA), and cerebral infarction without residual deficits; Z90.49 Acquired absence of other specified parts of digestive tract; Z90.710 Acquired absence of both cervix and uterus; Z88.1 Allergy status to other antibiotic agents; Z88.5 Allergy status to narcotic agent; Z88.0 Allergy status to penicillin; Z88.2 Allergy status to sulfonamides; Z79.82 Long term (current) use of aspirin; Z79.899 Other long term (current) drug therapy; Z90.89 Acquired absence of other organs
CPT/HCPCS: 36415; 71045; 74176; 80048; 80053; 81001; 82270; 83605; 83735; 84132; 84443; 84484; 85014; 85018; 85025; 85610; 85730; 87040; 87045; 87493; 87899; 96361; 96365; 96375; A6257; C9113; G0378; J0696; J1885; J2405; J3490

== ENCOUNTER → 2018-08-22 | Outpatient (CLI) | payer OTHER, MEDICAID ==
[~2018-08-22] MED LIST changes: -ASPI81CH45 PO; -BENA40TA7 PO; -HYDR25TA4 PO; +LEVO500T21 PO; +METR500T PO
[2018-08-22 09:21] LABS: Basophils # (auto) 0 uL; Basophils % (auto) 0.4 % (0.0-2.0); Eosinophils # (auto) 0 uL; Hematocrit 38.3 % (36.0-46.0); Monocytes # (auto) 0.8 uL
[2018-08-22 09:23] LABS: Eosinophils % (auto) 0.4 % (0.0-7.0); Hemoglobin 12.7 g/dL (12.2-16.2); Lymphocytes # (auto) 1.3 uL; Lymphocytes % (auto) 15.6 % (10.0-50.0); Mean Corpuscular Hemoglobin 26.4 pg (28.0-32.0); Mean Corpuscular Volume 79.8 fL (80.0-100.0); Monocytes % (auto) 9.8 % (0.0-12.0); Neutrophils # (auto) 6.3 uL; Neutrophils % (auto) 73.8 % (37.0-80.0); Platelet Count (auto) 319 10^3/uL (140-450); Red Blood Cells 4.81 10^6/uL (4.0-5.20); Red Cell Distribution Width 16.3 % (11.8-14.3); White Blood Cell 8.5 10^3/uL (4.4-10.8)
== END | disposition home or self-care (01) ==
LOC: LAB 08:57
PROVIDERS: ATTEND Internal Medicine
DX: D64.9 Anemia, unspecified (principal)
CPT/HCPCS: 36415; 85025

== ENCOUNTER → 2018-10-24 | Day surgery (SDC) | payer OTHER, MEDICAID ==
[2018-10-21 09:34] LABS: Basophils # (auto) 0 uL; Eosinophils # (auto) 0 uL; Eosinophils % (auto) 0.6 % (0.0-7.0); Hemoglobin 13.7 g/dL (12.2-16.2); Lymphocytes # (auto) 1.5 uL; Monocytes # (auto) 0.5 uL; Neutrophils # (auto) 4.3 uL
[2018-10-21 09:35] LABS: Basophils % (auto) 0.6 % (0.0-2.0); Hematocrit 42.7 % (36.0-46.0); Lymphocytes % (auto) 23.7 % (10.0-50.0); Mean Corpuscular Hemoglobin 25.8 pg (28.0-32.0); Mean Corpuscular Volume 80.7 fL (80.0-100.0); Neutrophils % (auto) 67.1 % (37.0-80.0); Platelet Count (auto) 267 10^3/uL (140-450); Red Blood Cells 5.29 10^6/uL (4.0-5.20); Red Cell Distribution Width 17.1 % (11.8-14.3); White Blood Cell 6.4 10^3/uL (4.4-10.8)
[2018-10-21 09:45] LABS: INR 0.92 (0.9-1.15); Partial Thromboplastin Time 28.8 sec (23.78-33.04); Prothrombin Time 9.9 sec (9.27-12.13)
[~2018-10-24] VITALS: Ht 154.9 cm; Wt 56.7 kg
[~2018-10-24] MED LIST changes: +ASPI81TA27 PO; +BENA40TA7 PO; -LEVO500T21 PO; +LIDOCAINE VISCOUS 2% 15ML UD ONE; -METR500T PO; +MIDAZOLAM HCL 5 MG/ML-1ML VIAL ONE; +ONDANSETRON HCL 4 MG/2 ML VIAL ONE; +SODIUM CHLORIDE LOCK 10 ML ONE; +diphenhdrAMINE HCL 50 MG/1 ML VL ONE; +fentaNYL CITRATE 100 MCG/2 ML VL ONE
[2018-10-24] MEDS: MIDAZOLAM HCL 5 MG/ML-1ML VIAL ONE ×3 (11:09→11:22)
[2018-10-24] MEDS: fentaNYL CITRATE 100 MCG/2 ML VL ONE ×2 (11:09→11:18)
[2018-10-24 12:06] VITALS: BP 148/64
== END | disposition home or self-care (01) ==
LOC: SUR 09:04
PROVIDERS: ATTEND Internal Medicine Gastroenterology
DX: K63.5 Polyp of colon (principal); K44.9 Diaphragmatic hernia without obstruction or gangrene; J44.9 Chronic obstructive pulmonary disease, unspecified; G47.30 Sleep apnea, unspecified; F41.9 Anxiety disorder, unspecified; Z79.899 Other long term (current) drug therapy; Z88.1 Allergy status to other antibiotic agents; Z88.0 Allergy status to penicillin; Z88.5 Allergy status to narcotic agent; Z90.710 Acquired absence of both cervix and uterus; Z90.721 Acquired absence of ovaries, unilateral; Z98.890 Other specified postprocedural states
CPT/HCPCS: 36415; 43239; 45380; 85025; 85610; 85730; A6257; J2250; J2405; J3010; 99152; 99153

== ENCOUNTER 2019-11-13 16:20 | Inpatient (IN) | payer OTHER, MEDICAID ==
[~2019-11-13] VITALS: Ht 154.9 cm; Wt 36.4 kg
--- NOTE | 2019-11-13 09:25 | NUR ---
Telemetry admit from ER LUDWIN ARECHIGA admitted to Telemetry unit after SBAR received. Patient oriented to ELIAS SMALL, RN primary RN, [facility], 291 room, bed A, and unit policies regarding patient care and visiting hours. Patient now on continuous telemetry monitoring, tele box # 57 and telemetry reading on arrival to unit is SR 80. weighed by bed scale and encouraged to call if they need something. All questions and concerns addressed, patient verbalized understanding. Note: Patient is alert and oriented x4; speech is clear; complains of right sided weakness; Denies lightheadedness and headache. Denies shortness of breath. Bed in low position and call light place in reach.
[~2019-11-13 16:20] MED LIST changes: +ASPI-404 PO; -ASPI81TA27 PO; -LIDOCAINE VISCOUS 2% 15ML UD ONE; -MIDAZOLAM HCL 5 MG/ML-1ML VIAL ONE; -ONDANSETRON HCL 4 MG/2 ML VIAL ONE; -SODIUM CHLORIDE LOCK 10 ML ONE; -diphenhdrAMINE HCL 50 MG/1 ML VL ONE; -fentaNYL CITRATE 100 MCG/2 ML VL ONE
[2019-11-13] MEDS ORDERED: hydrALAZINE HCL 20 MG/ML VL IV ONE (17:00)
[2019-11-13 17:17] LABS: Basophils # (auto) 0.1 10 ^3/uL (0-0.2); Basophils % (auto) 0.6 % (0.0-2.0); Mean Corpuscular Hgb Conc. 33.1 g/dL (32.0-36.0); Monocytes # (auto) 0.8 10 ^3/uL (0-1.3); Nucleated Red Blood Cells % 0.1 %
[2019-11-13 17:18] LABS: Eosinophils # (auto) 0.1 10 ^3/uL (0-0.8); Eosinophils % (auto) 0.6 % (0.0-7.0); Hematocrit 40.1 % (36.0-46.0); Hemoglobin 13.3 g/dL (12.2-16.2); Lymphocytes # (auto) 2.3 10 ^3/uL (0.4-5.4); Lymphocytes % (auto) 22.7 % (10.0-50.0); Mean Corpuscular Hemoglobin 26.6 pg (28.0-32.0); Mean Corpuscular Volume 80.2 fL (80.0-100.0); Monocytes % (auto) 7.9 % (0.0-12.0); Neutrophils # (auto) 6.9 10 ^3/uL (1.6-8.6); Neutrophils % (auto) 68.2 % (37.0-80.0); Platelet Count (auto) 213 10^3/uL (140-450); Red Blood Cells 4.99 10^6/uL (4.0-5.20); Red Cell Distribution Width 16.3 % (11.8-14.3); White Blood Cell 10.2 10^3/uL (4.4-10.8)
[2019-11-13 17:26] LABS: Albumin 3.6 g/dL (3.4-5.0); Anion Gap 7 (5-15); Blood Urea Nitrogen 14 mg/dL (7-18); Calcium 8.7 mg/dL (8.5-10.1); Carbon Dioxide 28 mmol/L (21-32); Chloride 108 mmol/L (98-107); Glucose 99 mg/dL (74-106); Magnesium 2.7 mg/dL (1.6-2.6); Potassium 3.4 mmol/L (3.5-5.1); Sodium 143 mmol/L (136-145)
[2019-11-13 17:35] LABS: Alanine Aminotransferase 22 U/L (13-56); Alkaline Phosphatase 107 U/L (45-117); Aspartate Aminotransferase 18 U/L (15-37); BUN/Creatinine Ratio 14.6; Bilirubin, Total 0.3 mg/dL (0.2-1.0); GFR African American 73 mL/min; GFR Non-African American 60 mL/min; Total Protein 7.8 g/dL (6.4-8.2)
[2019-11-13 17:45] LABS: Urine WBC None Seen /hpf (0 - 5)
[2019-11-13] MEDS ORDERED: NITROGLYCERIN 0.4 MG SL TAB SL PRN ×2 (18:00→19:30)
[2019-11-13] MEDS ORDERED: FUROSEMIDE 20 MG/2 ML VIAL IV ONE (18:00)
[2019-11-13] MEDS ORDERED: POTASSIUM CHL 20 Meq TABLET PO ONE ×2 (18:00→20:00)
[2019-11-13] MEDS ORDERED: MORPHINE SULF INJ 2 MG/ML SYRINGE 1ML IV PRN (18:00)
[2019-11-13 18:03] LABS: Urine Bacteria NONE SEEN /hpf (None Seen); Urine Blood Negative /uL (Negative); Urine Specific Gravity 1.009 (1.001-1.035)
[2019-11-13] MEDS ORDERED: IOHEXOL 300 MG/ML 100ML BOTTLE IJ ONE (18:08)
[2019-11-13] MEDS ORDERED: FAMOTIDINE 20 MG TAB PO ONE (19:30)
[2019-11-13] MEDS ORDERED: NIFEdipine ER 30 MG TAB PO ONE (19:30)
[2019-11-13] MEDS ORDERED: hydrALAZINE HCL 20 MG/ML VL IV PRN (19:30)
[2019-11-13] MEDS ORDERED: LORazepam 0.5 MG TAB PO PRN (19:30)
[2019-11-13] MEDS ORDERED: LISINOPRIL 20 MG TAB PO ONE (19:30)
[2019-11-13] MEDS ORDERED: ONDANSETRON HCL 4 MG/2 ML VIAL IV PRN (19:30)
[2019-11-13] MEDS ORDERED: HYDROcodone-ACET 5/325MG TAB PO PRN (19:30)
[2019-11-13] MEDS ORDERED: DEXTROSE (50%) 50ML SYRG IV PRN (19:30)
[2019-11-13 20:30] VITALS: BP 164/69
[2019-11-13 21:25] VITALS: BP 159/78
[2019-11-13] MEDS ORDERED: POTA10TA51 PO (21:36)
[2019-11-13 22:00] VITALS: BP 164/69
[2019-11-13] MEDS: InsuLIN REG 1unit/0.01ml Soln (100units/ml) SC SCH (22:00)
[2019-11-13] MEDS: ACCU-CHEK COMFORT CURVE STRIP VI SCH (22:00)
[2019-11-14 05:19] VITALS: BP 112/45
[2019-11-14] MEDS: FUROSEMIDE 20 MG/2 ML VIAL IV SCH ×2 (06:00→18:11)
[2019-11-14] MEDS: ACCU-CHEK COMFORT CURVE STRIP VI SCH ×4 (06:12→21:29)
[2019-11-14] MEDS: InsuLIN REG 1unit/0.01ml Soln (100units/ml) SC SCH ×4 (06:12→21:30)
[2019-11-14 06:46] LABS: Basophils # (auto) 0 10 ^3/uL (0-0.2); Basophils % (auto) 0.4 % (0.0-2.0); Eosinophils # (auto) 0 10 ^3/uL (0-0.8); Eosinophils % (auto) 0.4 % (0.0-7.0); Hematocrit 39.2 % (36.0-46.0); Hemoglobin 13.2 g/dL (12.2-16.2); Lymphocytes # (auto) 1.4 10 ^3/uL (0.4-5.4); Lymphocytes % (auto) 17.9 % (10.0-50.0); Mean Corpuscular Hemoglobin 27.1 pg (28.0-32.0); Mean Corpuscular Hgb Conc. 33.6 g/dL (32.0-36.0); Mean Corpuscular Volume 80.4 fL (80.0-100.0); Monocytes # (auto) 0.5 10 ^3/uL (0-1.3); Neutrophils # (auto) 5.6 10 ^3/uL (1.6-8.6); Neutrophils % (auto) 74.3 % (37.0-80.0); Platelet Count (auto) 211 10^3/uL (140-450); Red Blood Cells 4.87 10^6/uL (4.0-5.20); Red Cell Distribution Width 16.3 % (11.8-14.3); White Blood Cell 7.6 10^3/uL (4.4-10.8)
[2019-11-14 07:06] LABS: Albumin 3.4 g/dL (3.4-5.0); Magnesium 2.6 mg/dL (1.6-2.6); Potassium 4.2 mmol/L (3.5-5.1)
[2019-11-14 07:10] LABS: BUN/Creatinine Ratio 12.4; Bilirubin, Total 0.6 mg/dL (0.2-1.0); Phosphorus 3.6 mg/dL (2.5-4.90); Total Protein 7.6 g/dL (6.4-8.2)
[2019-11-14 08:00] VITALS: BP 124/62
--- NOTE | 2019-11-14 08:08 | NUR ---
Opening Shift Note Assumed care of patient,patient comfortably sitting up in bed eating breakfast. Patient is awake and alert. No S/S of distress/SOB or pain. Bed at lowest locked position and call light within reach. Instructed on POC and to call for assist PRN, will continue to monitor for changes Q1hr and PRN.
[2019-11-14 09:06] VITALS: BP 124/62
[2019-11-14] MEDS: ENOXAPARIN SOD 40 MG/0.4 ML SYRINGE SC SCH (09:58)
[2019-11-14] MEDS: DOCUSATE SOD 100 MG CAP PO SCH (09:59)
[2019-11-14] MEDS: NIFEdipine ER 30 MG TAB PO SCH (10:00)
[2019-11-14] MEDS ORDERED: ASPirin 81 mg TAB PO SCH (10:00)
[2019-11-14] MEDS: LISINOPRIL 20 MG TAB PO SCH (10:00)
[2019-11-14] MEDS: ASPirin-EC 81 mg tab PO SCH (10:06)
[2019-11-14] MEDS: FAMOTIDINE 20 MG TAB PO SCH (10:06)
[2019-11-14 13:00] VITALS: BP 137/79
[2019-11-14 16:59] VITALS: BP 131/60
[2019-11-14] MEDS: PRAVASTATIN SODIUM 20 MG TAB PO SCH (18:11)
--- NOTE | 2019-11-14 19:19 | NUR ---
closing note Patient is comfortably sitting up in bed on room air, no c/o pain, no s/s of distress/sob noted. Bed at lowest locked position and call light within reach . Care endorsed to LACEY Alicea.
--- NOTE | 2019-11-14 20:09 | NUR ---
Opening Shift Note Assumed care of patient, awake and alert. No S/S of distress/SOB or pain. Patient reports no falls in the past 12months and reports she is able to ambulate. informed patient to call for help to be assisted to use the restroom to prevent falls. bed alarm is not working patient educated to call for help . patient verbalized understanding. Instructed on POC and to call for assist PRN, will continue to monitor for changes Q1hr and PRN. fall precautions in place
[2019-11-14 21:38] VITALS: BP 122/67
[2019-11-15 05:37] VITALS: BP 120/69
[2019-11-15] MEDS: FUROSEMIDE 20 MG/2 ML VIAL IV SCH ×2 (06:28→18:07)
[2019-11-15] MEDS: InsuLIN REG 1unit/0.01ml Soln (100units/ml) SC SCH ×4 (06:31→21:31)
[2019-11-15] MEDS: ACCU-CHEK COMFORT CURVE STRIP VI SCH ×4 (06:31→21:31)
--- NOTE | 2019-11-15 07:40 | NUR ---
REPORT GIVEN TO OLIVA RN PATIENT DENIES SOB DISTRESS OR PAIN
[2019-11-15 08:00] VITALS: BP 140/71
--- NOTE | 2019-11-15 08:12 | NUR ---
Opening Shift Note Assumed care of patient, patient is comfortably sitting up in bed eating breakfast. Patient is awake and alert. No S/S of distress/SOB or pain. Instructed on POC and to call for assist PRN. Bed at lowest locked position and call light within reach.Will continue to monitor for changes Q1hr and PRN.
[2019-11-15 09:00] VITALS: BP 140/71
[2019-11-15] MEDS: LISINOPRIL 20 MG TAB PO SCH (09:53)
[2019-11-15] MEDS: ENOXAPARIN SOD 40 MG/0.4 ML SYRINGE SC SCH (09:53)
[2019-11-15] MEDS: FAMOTIDINE 20 MG TAB PO SCH (09:54)
[2019-11-15] MEDS: ASPirin-EC 81 mg tab PO SCH (09:54)
[2019-11-15] MEDS: DOCUSATE SOD 100 MG CAP PO SCH (09:54)
[2019-11-15] MEDS: NIFEdipine ER 30 MG TAB PO SCH (10:00)
[2019-11-15 12:50] VITALS: BP 136/79
--- NOTE | 2019-11-15 16:38 | NUR ---
ELEVATED BP Patient's blood pressure is 157/87, HR 81, no c/o pain, no s/s of distress/sob noted. Will medicate per MD orders. Addendum: 11/15/19 at 1806 by Hyacinth Madrid RN BLOOD PRESSURE REASSESSMENT 119/80
[2019-11-15 17:00] VITALS: BP 157/87
[2019-11-15] MEDS: PRAVASTATIN SODIUM 20 MG TAB PO SCH (17:01)
--- NOTE | 2019-11-15 19:00 | NUR ---
Opening Shift Note Assumed care of patient, awake and alert. No S/S of distress/SOB or pain. Patient ambulated to the restroom steady gait. Instructed on POC and to call for assist PRN, will continue to monitor for changes Q1hr and PRN. bed in low position call light within reach.
--- NOTE | 2019-11-15 19:44 | NUR ---
IV insertion for stress test in am. IV access obtained, via clean sterile technique by inserting 22 gauge catheter at left ac after 1 attempt. IV secured properly. Iv patent flushed with NS. No trauma to site. Patient tolerated well.
--- NOTE | 2019-11-15 19:44 | NUR ---
patient educated on npo status at midnight for procedure tomorrow. patient verbalized understanding
[2019-11-15 22:56] VITALS: BP 127/65
[2019-11-16] VITALS (7 sets, daily range): BP systolic 129–184; BP diastolic 63–83
[2019-11-16] MEDS: FUROSEMIDE 20 MG/2 ML VIAL IV SCH ×2 (06:10→18:13)
[2019-11-16] MEDS: ACCU-CHEK COMFORT CURVE STRIP VI SCH ×4 (06:12→21:42)
[2019-11-16] MEDS: InsuLIN REG 1unit/0.01ml Soln (100units/ml) SC SCH ×4 (06:12→21:42)
--- NOTE | 2019-11-16 06:59 | NUR ---
patien rounds patient is in bed sleeping no signs of sob distress or pain. iv intact and patent. bed in low position and call light within reach
--- NOTE | 2019-11-16 07:43 | NUR ---
REPORT GIVEN TO DAYSHIFT RN. PATIENT DENIES SOB DISTRESS OR PAIN
--- NOTE | 2019-11-16 08:00 | NUR ---
Opening Shift Note Assumed care of patient, awake, alert and oriented. No S/S of distress/SOB or pain. Instructed on POC and to call for assist PRN. Bed locked, in lowest position, call light within reach. Will continue to monitor for changes Q1hr and PRN.
[2019-11-16] MEDS ORDERED: ADENOSINE 45 MG in GIVE UN-DILUTED 0 ML IV STA (08:18)
--- NOTE | 2019-11-16 09:35 | NUR ---
Patient off unit for procedure
[2019-11-16] MEDS: ENOXAPARIN SOD 40 MG/0.4 ML SYRINGE SC SCH (11:54)
[2019-11-16] MEDS: LISINOPRIL 20 MG TAB PO SCH (11:55)
[2019-11-16] MEDS: NIFEdipine ER 30 MG TAB PO SCH (11:56)
[2019-11-16] MEDS: FAMOTIDINE 20 MG TAB PO SCH (12:02)
[2019-11-16] MEDS: DOCUSATE SOD 100 MG CAP PO SCH (12:02)
[2019-11-16] MEDS: ASPirin-EC 81 mg tab PO SCH (12:02)
[2019-11-16] MEDS: PRAVASTATIN SODIUM 20 MG TAB PO SCH (18:13)
--- NOTE | 2019-11-16 19:03 | NUR ---
REPORT GIVEN TO NIGHT NURSE.
--- NOTE | 2019-11-16 19:05 | NUR ---
Opening Shift Note Assumed care of patient, awake and alert. No S/S of distress/SOB or pain. Patient in the lowest possible position with bed rails up x2 and call light within reach. Instructed on POC and to call for assist PRN, will continue to monitor for changes Q1hr and PRN.
[2019-11-17 05:23] VITALS: BP 118/74
[2019-11-17] MEDS: FUROSEMIDE 20 MG/2 ML VIAL IV SCH (06:08)
[2019-11-17] MEDS: ACCU-CHEK COMFORT CURVE STRIP VI SCH ×2 (06:24→12:07)
[2019-11-17] MEDS: InsuLIN REG 1unit/0.01ml Soln (100units/ml) SC SCH ×2 (06:24→11:30)
[2019-11-17 08:00] VITALS: BP 129/70
[2019-11-17 08:17] VITALS: BP 129/70
[2019-11-17] MEDS: DOCUSATE SOD 100 MG CAP PO SCH (09:30)
[2019-11-17] MEDS: NIFEdipine ER 30 MG TAB PO SCH (09:31)
[2019-11-17] MEDS: FAMOTIDINE 20 MG TAB PO SCH (09:31)
[2019-11-17] MEDS: ASPirin-EC 81 mg tab PO SCH (09:31)
[2019-11-17] MEDS: ENOXAPARIN SOD 40 MG/0.4 ML SYRINGE SC SCH (09:32)
[2019-11-17] MEDS: LISINOPRIL 20 MG TAB PO SCH (09:32)
[2019-11-17 12:00] VITALS: BP 143/73
--- NOTE | 2019-11-17 14:12 | NUR ---
PATIENT DISCHARGED HOME WITH FAMILY. ALL IV ACCESS DISCONTINUED. TELEMETRY BOX REMOVED AND RETURNED TO TELEMETRY DEPARTMENT. ALL DISCHARGE INSTRUCTIONS GIVEN. ALL DISCHARGE PAPERWORK SIGNED.
== END 2019-11-17 14:15 | disposition home or self-care (01) | DRG 305 ==
LOC: ER 16:20 → TELE 16:21 → TELE-WESTW 20:55
PROVIDERS: ADMIT Hospitalist; ATTEND Internal Medicine
DX: I16.9 Hypertensive crisis, unspecified (principal); I16.1 Hypertensive emergency; I11.9 Hypertensive heart disease without heart failure; E11.9 Type 2 diabetes mellitus without complications; E78.5 Hyperlipidemia, unspecified; F41.9 Anxiety disorder, unspecified; K21.9 Gastro-esophageal reflux disease without esophagitis; F17.200 Nicotine dependence, unspecified, uncomplicated; Z91.19 Patient's noncompliance with other medical treatment and regimen; Z86.73 Personal history of transient ischemic attack (TIA), and cerebral infarction without residual deficits; Z90.49 Acquired absence of other specified parts of digestive tract; Z90.710 Acquired absence of both cervix and uterus; Z88.5 Allergy status to narcotic agent; Z88.0 Allergy status to penicillin; Z88.2 Allergy status to sulfonamides
CPT/HCPCS: 36415; 70450; 71275; 78452; 80053; 80061; 81001; 82962; 83036; 83735; 84100; 84484; 85025; 93005; 93017; 93306; 93886; G0378; J0153

== ENCOUNTER 2023-06-07 19:11 | Emergency (ER) | payer BC, MEDICAID ==
[~2023-06-07] VITALS: Ht 154.9 cm; Wt 50.0 kg
[~2023-06-07 19:11] MED LIST changes: -ASPI-404 PO; +ASPI-543 PO; -BENA40TA7 PO; +BENA40TA70 PO; +POTA10TA51 PO
[2023-06-07 19:13] VITALS: BP 155/66; RESP 18
[2023-06-07 19:57] LABS: Basophils # (auto) 0 10 ^3/uL (0-0.2); Basophils % (auto) 0.4 % (0.0-2.0); Eosinophils # (auto) 0.1 10 ^3/uL (0-0.8); Mean Corpuscular Hemoglobin 26.6 pg (28.0-32.0); Monocytes # (auto) 0.9 10 ^3/uL (0-1.3); Nucleated Red Blood Cells % 0.1 %
[2023-06-07 19:59] LABS: Eosinophils % (auto) 0.7 % (0.0-7.0); Hematocrit 42.6 % (36.0-46.0); Hemoglobin 13.9 g/dL (12.2-16.2); Lymphocytes # (auto) 2.9 10 ^3/uL (0.4-5.4); Lymphocytes % (auto) 27.4 % (10.0-50.0); Mean Corpuscular Hgb Conc. 32.7 g/dL (32.0-36.0); Mean Corpuscular Volume 81.2 fL (80.0-100.0); Monocytes % (auto) 8.4 % (0.0-12.0); Neutrophils # (auto) 6.6 10 ^3/uL (1.6-8.6); Neutrophils % (auto) 63.1 % (37.0-80.0); Red Blood Cells 5.25 10^6/uL (4.0-5.20); Red Cell Distribution Width 16.9 % (11.8-14.3); White Blood Cell 10.5 10^3/uL (4.4-10.8)
[2023-06-07 20:11] LABS: INR 0.98 (0.9-1.15); Partial Thromboplastin Time 27.9 SEC (24.5-34.5); Prothrombin Time 10.3 sec (9.3-11.8)
[2023-06-07 20:17] LABS: Alanine Aminotransferase 15 U/L (7-40); Albumin 4.5 g/dL (3.2-4.8); Alkaline Phosphatase 113 U/L (46-116); Anion Gap 6 (5-15); Aspartate Aminotransferase 17 U/L (13-40); Calcium 9.4 mg/dL (8.7-10.4); Carbon Dioxide 29 mmol/L (20-30); Chloride 107 mmol/L (98-107); Glucose 92 mg/dL (74-106); Potassium 3.7 mmol/L (3.5-5.1); Sodium 142 mmol/L (136-145)
[2023-06-07 20:41] LABS: BUN/Creatinine Ratio 14.1 (10.0-20.0); Blood Urea Nitrogen 13 mg/dL (9-23)
[2023-06-07 20:43] LABS: Bilirubin, Total 0.5 mg/dL (0.2-1.0); Total Protein 6.9 g/dL (5.7-8.2)
[2023-06-07] MEDS ORDERED: ONDANSETRON HCL 4 MG/2 ML VIAL IV ONE (21:30)
[2023-06-07] MEDS ORDERED: ASPirin 81 mg TAB PO ONE (21:30)
[2023-06-07] MEDS ORDERED: ACETAMINOPHEN 325 MG TAB PO ONE (21:30)
[2023-06-07] MEDS ORDERED: LORazepam 2MG/ML-1ML VIAL IV ONE (21:30)
[2023-06-07] MEDS ORDERED: NITROGLYCERIN 2% OINT 1GM PKG TD ONE (21:30)
[2023-06-07 22:28] VITALS: PULSE 75
== END 2023-06-07 22:47 | disposition left against medical advice (07) ==
LOC: ER 19:11
DX: R51.9 Headache, unspecified (principal); R07.9 Chest pain, unspecified; M25.512 Pain in left shoulder; I10 Essential (primary) hypertension; K21.9 Gastro-esophageal reflux disease without esophagitis; E78.5 Hyperlipidemia, unspecified; Z86.73 Personal history of transient ischemic attack (TIA), and cerebral infarction without residual deficits; Z88.2 Allergy status to sulfonamides; Z88.0 Allergy status to penicillin; Z88.6 Allergy status to analgesic agent; Z90.49 Acquired absence of other specified parts of digestive tract; Z90.710 Acquired absence of both cervix and uterus
CPT/HCPCS: 36415; 71045; 80053; 83735; 83880; 84443; 84484; 85025; 85379; 85610; 85730; 93005